=== PATIENT | male | born 1975 ===

== ENCOUNTER 2023-05-11 10:24 | Day surgery (SDC) | payer BC ==
[~2023-05-11 10:24] MED LIST: Metoclopramide 10 MG/2 ML SDV IV PRN; Sodium Chloride 0.9% 1,000 ML IV SCH
[2023-05-11] MEDS: Sodium Chloride 0.9% 1,000 ML IV SCH (11:01)
[2023-05-11] MEDS ORDERED: Propofol 1,000 MG/100 ML SDV ONE (12:00)
[2023-05-11 12:25] VITALS: BP 129/91; PULSE 61
== END 2023-05-11 13:05 | disposition home or self-care (01) ==
LOC: LB.SDS 10:24
PROVIDERS: ATTEND Surgery
DX: Z12.11 Encounter for screening for malignant neoplasm of colon (principal); K57.30 Diverticulosis of large intestine without perforation or abscess without bleeding; Z80.0 Family history of malignant neoplasm of digestive organs
CPT/HCPCS: J2704; J7030